=== PATIENT | male | born 1970 | race Caucasian/White ===

== ENCOUNTER 2016-12-18 23:13 | Inpatient (IN) | payer OTHER ==
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
[2016-12-19] MEDS ORDERED: CEFAZOLIN 1 GM in DEXTROSE 5%-WATER - 50 ML IVPB ONE ×2 (01:35→03:14)
[2016-12-19] MEDS ORDERED: HYDROmorphone HCL CARPU-JECT 1 MG/1 ML DISP.SYRIN IVPUSH ONE (01:39)
[2016-12-19] MEDS ORDERED: PIPERACILLIN/TAZOB 3.375 GM 3.375 GM in DEXTROSE 5%-WATER - 50 ML IVPB ONE (01:40)
[2016-12-19] MEDS ORDERED: HYDROmorphone HCL CARPU-JECT 1 MG/1 ML DISP.SYRIN ONE (01:45)
[2016-12-19] MEDS ORDERED: PIPERACILLIN/TAZOB 3.375 GM 50 ML IVPB ONE (01:46)
[2016-12-19] MEDS ORDERED: CEFAZOLIN (PRE-DOCKED) 50 ML IVPB ONE (01:46)
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
[2016-12-19] MEDS ORDERED: morphine CARPU-JECT 4 MG/1 ML DISP.SYRIN IVPUSH PRN (02:24)
[2016-12-19] MEDS ORDERED: ONDANSETRON 4 MG/2 ML VIAL IVPUSH PRN (02:25)
[2016-12-19 02:35] LABS: BASOPHIL 0.6 % (0-2.0); EOSINOPHIL 1.3 % (0-4.5); MEAN CELL VOLUME 81.8 fl (80-96); MEAN PLT VOLUME 8.9 fl (7.5-11.1); NEUTROPHILS 57.9 % (42.8-82.8); PLATELET COUNT 206 K/MM3 (134-434); RDW 13.7 % (11.9-15.9); WHITE BLOOD COUNT 7.6 K/mm3 (4.0-10.0)
[2016-12-19 02:43] LABS: INR 1.04 (0.82-1.09); PROTHROMBIN TIME (PATIENT) 11.4 SEC (9.98-11.88)
[2016-12-19 02:52] LABS: ALK PHOS 87 U/L (45-117); ANION GAP 10 (8-16); BILIRUBIN,TOTAL 0.3 mg/dL (0.2-1.0); CALCIUM 9.2 mg/dL (8.5-10.1); CO2 29 mmol/L (21-32); CREATININE 1.2 mg/dL (0.7-1.3); GLUCOSE,RANDOM 94 mg/dL (74-106); SGOT/AST 22 U/L (15-37); SGPT/ALT 23 U/L (12-78); TOT PROT 8.1 g/dl (6.4-8.2)
[2016-12-19 04:25] VITALS: BMI 28.4
[2016-12-19] MEDS ORDERED: LISINOPRIL 10 MG TABLET (FP) PO SCH (10:00)
[2016-12-19] MEDS ORDERED: amLODIPine BESYLATE 2.5 MG TABLET (FP) PO SCH (10:00)
[2016-12-19] MEDS: CLINDAMYCIN 900 MG PREMIX IVPB 50 ML IVPB SCH ×2 (10:50→17:51)
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
[2016-12-19] MEDS ORDERED: SODIUM CHLORIDE 1,000 ML IV SCH (14:00)
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
[2016-12-19 17:29] VITALS: BP 111/63; PULSE 56; TEMP 98.1
--- NOTE | 2016-12-19 17:33 | EKG ---
Test Reason : Blood Pressure : / mmHG Vent. Rate : 061 BPM Atrial Rate : 061 BPM P-R Int : 170 ms QRS Dur : 084 ms QT Int : 400 ms P-R-T Axes : 018 017 015 degrees QTc Int : 402 ms SINUS RHYTHM WITH PREMATURE SUPRAVENTRICULAR COMPLEXES OTHERWISE NORMAL ECG WHEN COMPARED WITH ECG OF 26-NOV-2016 22:25, PREMATURE SUPRAVENTRICULAR COMPLEXES ARE NOW PRESENT Confirmed by CHANO WILSON MD ([id number]) on 12/19/2016 5:32:57 PM Referred By: Confirmed By:CHANO WILSON MD
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
== END 2016-12-19 21:37 | disposition left against medical advice (07) | DRG 603 ==
LOC: JER 23:13 → JERBED 12-19 01:42 → UNDOADMIN 12-19 02:07 → J7W 12-19 03:49
PROVIDERS: ADMIT Internal Medicine; ATTEND Internal Medicine
DX: L03.114 Cellulitis of left upper limb (principal); S60.552D Superficial foreign body of left hand, subsequent encounter; V00-Y99 External causes of morbidity; I10 Essential (primary) hypertension; Z87.891 Personal history of nicotine dependence
CPT/HCPCS: 36415; 73130-TC-LT; 80053; 85025; 85610; 86850; 86900; 86901; 87040; 90471; 90715; 93005; 93010; 99282-25; 99283-25

== ENCOUNTER 2018-01-09 17:28 | Emergency (ER) | payer OTHER ==
[2018-01-09 17:42] VITALS: BP 118/72; PULSE 111; TEMP 98.8; BMI 28.3
--- NOTE | 2018-01-09 17:42 | PDOC ---
Rapid Medical Evaluation Medical Evaluation: Allergies Allergy/AdvReac Type Severity Reaction Status Date / Time No Known Allergies Allergy Verified 12/16/16 21:20 01/09/18 17:37 I have performed a brief in-person evaluation of this patient. The patient presents with a chief complaint of: headache x 3 days, body aches, "can't swallow", +cough/sneezing/runny nose subjective fever, denies vomiting/ diarrhea, took tylenol at 5 am, other OTC meds Pertinent physical exam findings: lungs ctab, tachy to 109 I have ordered the following: nothing The patient will proceed to the ED for further evaluation. Discharge Disposition - Diagnosis Cough - Referrals - Patient Instructions - Post Discharge Activity
--- NOTE | 2018-01-09 18:36 | PDOC ---
History of Present Illness - General Chief Complaint: Cold Symptoms Stated Complaint: COLD SYMPTOMS Time Seen by Provider: 01/09/18 18:11 History Source: Patient Exam Limitations: No Limitations - History of Present Illness Initial Comments: 01/09/18 18:30 Patient is a 47-year-old male with history of hypertension presents with 2 day history of productive cough, tactile fever, sore throat and headache. Thick duckworth secretions noted. Denies CP or SOB. Past Medical History: [Denies]. Allergies: No known allergies Medications: See medication list. Family History: Non-contributory Social History: Denies smoking, alcohol use, or IVDU Review of Systems GENERAL/CONSTITUTIONAL: [Tactile fever. No weakness. No weight change.] HEAD, EYES, EARS, NOSE AND THROAT: [No change in vision. No ear pain or discharge. Sore throat. ] CARDIOVASCULAR: [No chest pain or shortness of breath.] RESPIRATORY: [Productive cough, no wheezing, or hemoptysis.] GASTROINTESTINAL: [No nausea, vomiting, diarrhea or constipation. No rectal bleeding.] GENITOURINARY: [No dysuria, frequency, or change in urination.] MUSCULOSKELETAL: [No joint or muscle swelling or pain. No neck or back pain.] SKIN AND BREASTS: [No rash or easy bruising.] NEUROLOGIC: [Frontal headache, no vertigo, loss of consciousness, or loss of sensation.] PSYCHIATRIC: [No depression or anxiety.] ENDOCRINE: [No increased thirst. No abnormal weight change.] HEMATOLOGIC/LYMPHATIC: [No anemia, easy bleeding, or history of blood clots.] ALLERGIC/IMMUNOLOGIC: [No hives or skin allergy. No latex allergy.] Physical Exam: GENERAL: [The patient is awake, alert, and fully oriented, in no acute distress. ] EYES: [Pupils equal, round and reactive to light, extraocular movements intact, sclera anicteric, conjunctiva clear.] ENT: [Ears normal, nares patent, oropharynx clear without exudates. Moist mucous membranes. No uvula deviation. Frontal sinus pressure and pain.] NECK: [Normal range of motion, supple without lymphadenopathy, JVD, or masses.] LUNGS: [Breath sounds equal, clear to auscultation bilaterally. No wheezes, and no crackles.] HEART: [Regular rate and rhythm, normal S1 and S2 without murmur, rub or gallop. ] ABDOMEN: [Soft, nontender, normoactive bowel sounds. No guarding, no rebound. No masses. No bruising or abrasions] MUSCULOSKELETAL: [Normal range of motion, no edema. No clubbing or cyanosis. No cords, erythema, or tenderness. No CVA Tenderness with fist.] NEUROLOGICAL: [Cranial nerves II through XII grossly intact. Normal speech, normal gait.] SKIN: [Warm, Dry, normal turgor, no rashes or lesions noted.] Past History - Past Medical History Allergies/Adverse Reactions: Allergies Allergy/AdvReac Type Severity Reaction Status Date / Time No Known Allergies Allergy Verified 01/09/18 17:38 Home Medications: Ambulatory Orders AmLODIPine 2.5/BENAZEPRIL 10 [Lotrel (Nf)] 1 cap PO DAILY 04/09/12 Azithromycin [Zithromax 250mg Tablets -] 250 mg PO UTDICT #6 tab 01/09/18 COPD: No DVT: No HTN: Yes - Immunization History Td Vaccination: Yes (12/16/16) Immunization Up to Date: Yes - Suicide/Smoking/Psychosocial Hx Smoking Status: No Smoking History: Former smoker Have you smoked in the past 12 months: No Number of Cigarettes Smoked Daily: 0 If you are a former smoker, when did you quit?: 20yrs Cigars Per Day: 0 Information on smoking cessation initiated: No Hx Alcohol Use: No Drug/Substance Use Hx: No Substance Use Type: None Hx Substance Use Treatment: No *Physical Exam - Vital Signs Last Vital Signs Temp Pulse Resp BP Pulse Ox 98.8 F 111 H 18 118/72 98 01/09/18 17:39 01/09/18 17:39 01/09/18 17:39 01/09/18 17:39 01/09/18 17:39 Medical Decision Making - Medical Decision Making 01/09/18 18:36 A/P: Patient with frontal sinus pressure pain, cough, headache, sore throat, nares are intact with no erythema or edema. Fever. Rapid strep and rapid influenza sent. *DC/Admit/Observation/Transfer Diagnosis at time of Disposition: URI (upper respiratory infection) Qualifiers: URI type: unspecified URI Qualified Code(s): J06.9 - Acute upper respiratory infection, unspecified - Discharge Dispostion Disposition: HOME Condition at time of disposition: Stable Admit: No - Prescriptions Prescriptions: Azithromycin [Zithromax 250mg Tablets -] 250 mg PO UTDICT #6 tab - Referrals - Patient Instructions Additional Instructions: Keep head of bed elevated 45 when sleeping Cool air humidifier while sleeping will reduce cough Motrin for fever greater than 101 Followup in the primary care doctor's office in 2 days for evaluation. If any respiratory distress, increased cough, inability to drink, increased wheezing please return immediately to emergency department. - Post Discharge Activity Forms/Work/School Notes: Back to Work
== END 2018-01-09 19:32 | disposition home or self-care (01) ==
LOC: JERFT 17:28
DX: J06.9 Acute upper respiratory infection, unspecified (principal); I10 Essential (primary) hypertension; Z87.891 Personal history of nicotine dependence
CPT/HCPCS: 87070; 87077; 87430; 87804; 99281-25

== ENCOUNTER 2019-07-08 18:56 | Emergency (ER) | payer OTHER ==
[2019-07-08] MEDS ORDERED: KETOROLAC TROMETHAMINE 60 MG/2 ML VIAL IM ONE (19:04)
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
[2019-07-08 19:12] VITALS: BP 129/91; PULSE 86; TEMP 97.8; BMI 65.1
[2019-07-08] MEDS ORDERED: ACETAMINOPHEN 500 MG TABLET (FP) PO ONE (19:35)
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
== END 2019-07-08 20:17 | disposition home or self-care (01) ==
LOC: JERFT 18:56
DX: S06.0X0A Concussion without loss of consciousness, initial encounter (principal); M54.5 Low back pain; V49.49XA Driver injured in collision with other motor vehicles in traffic accident, initial encounter; Y92.414 Local residential or business street as the place of occurrence of the external cause; Y93.89 Activity, other specified; Y99.8 Other external cause status; I10 Essential (primary) hypertension
CPT/HCPCS: 70450-TC; 99281-25

== ENCOUNTER 2022-01-18 18:46 | Observation (INO) | payer OTHER ==
[2022-01-18 20:15] LABS: BASO % 0.4 % (0-2.0); EOS % 0.8 % (0-4.5); HEMATOCRIT 45.5 % (35.4-49); LYMPH % 33.5 % (8-40); MCH 27.2 pg (25.7-33.7); MCHC 33.1 g/dl (32.0-35.9); MEAN CELL VOLUME 82.4 fl (80-96); MONO % 7.7 % (3.8-10.2); NEUT % 57.6 % (42.8-82.8); PLATELET COUNT 196 10^3/uL (134-434); RBC 5.52 M/mm3 (4.00-5.60); RDW 14.3 % (11.9-15.9); WHITE BLOOD COUNT 6.5 K/mm3 (4.0-10.0)
[2022-01-18] MEDS ORDERED: ALPRAZolam 0.25 MG TABLET PO ONE (20:16)
[2022-01-18 20:19] LABS: URINE APPEARANCE CLEAR; URINE BILIRUBIN NEGATIVE (NEGATIVE); URINE COLOR YELLOW; URINE GLUCOSE (UA) NEGATIVE (NEGATIVE); URINE KETONE TRACE (NEGATIVE); URINE LEUK ESTERASE NEGATIVE (NEGATIVE); URINE NITRITE NEGATIVE (NEGATIVE); URINE PROTEIN NEGATIVE (NEGATIVE); URINE UROBILINOGEN 0.2 mg/dL (0.2-1.0)
[2022-01-18 20:21] LABS: INR 0.97 (0.83-1.09); PROTHROMBIN TIME (PATIENT) 11.2 SEC (9.7-13.0)
[2022-01-18 20:23] LABS: ACTIVATED PTT 32.2 SECONDS (25.2-36.5)
[2022-01-18 20:38] LABS: ALBUMIN 4.1 g/dl (3.4-5.0); BLOOD UREA NITROGEN 19.7 mg/dL (7-18); CALCIUM 9.3 mg/dL (8.5-10.1)
[2022-01-18 20:41] LABS: CREATININE 1.1 mg/dL (0.55-1.3)
[2022-01-18 20:43] LABS: BILIRUBIN,TOTAL 0.4 mg/dL (0.2-1); TOT PROT 7.8 g/dl (6.4-8.2)
[2022-01-18] MEDS ORDERED: ASPIRIN 81 MG CHEWABLE TABLETS PO ONE (21:21)
[2022-01-18] MEDS ORDERED: ASPIRIN 325 MG TABLET ONE (21:42)
[2022-01-19 01:19] LABS: PHENCYCLIDINE,URINE NEGATIVE (NEGATIVE)
[2022-01-19 01:20] LABS: COCAINE, UR NEGATIVE (NEGATIVE); OPIATES, URI NEGATIVE (NEGATIVE)
[2022-01-19 01:22] LABS: METHADONE, UR NEGATIVE (NEGATIVE); URINE AMPHETAMINES NEGATIVE (NEGATIVE); URINE BARBITURATES NEGATIVE (NEGATIVE); URINE BENZODIAZEPINES NEGATIVE (NEGATIVE)
[2022-01-19 03:58] VITALS: BMI 27.6
[2022-01-19 07:54] LABS: BASO % 0.2 % (0-2.0); EOS % 0.4 % (0-4.5); HEMATOCRIT 42.7 % (35.4-49); HEMOGLOBIN 13.8 GM/dL (11.7-16.9); LYMPH % 27.9 % (8-40); MCH 26.8 pg (25.7-33.7); MCHC 32.4 g/dl (32.0-35.9); MEAN CELL VOLUME 82.8 fl (80-96); MEAN PLT VOLUME 9.1 fl (7.5-11.1); MONO % 8.7 % (3.8-10.2); NEUT % 62.8 % (42.8-82.8); PLATELET COUNT 181 10^3/uL (134-434); RBC 5.15 M/mm3 (4.00-5.60); RDW 14.1 % (11.9-15.9); WHITE BLOOD COUNT 6.2 K/mm3 (4.0-10.0)
[2022-01-19 08:18] LABS: CALCIUM 8.7 mg/dL (8.5-10.1)
[2022-01-19 08:19] LABS: ALBUMIN 3.5 g/dl (3.4-5.0); BLOOD UREA NITROGEN 15.4 mg/dL (7-18); MAGNESIUM 2.2 mg/dL (1.8-2.4)
[2022-01-19 08:22] LABS: CREATININE 0.9 mg/dL (0.55-1.3); PHOSPHOROUS 3.9 mg/dL (2.5-4.9)
[2022-01-19 08:23] LABS: BILIRUBIN,TOTAL 0.6 mg/dL (0.2-1)
[2022-01-19 08:24] LABS: TOT PROT 6.8 g/dl (6.4-8.2)
[2022-01-19] MEDS ORDERED: LISINOPRIL 10 MG TABLET PO SCH (10:00)
[2022-01-19] MEDS ORDERED: ASPIRIN 81 MG CHEWABLE TABLETS PO SCH (10:00)
[2022-01-19] MEDS ORDERED: ENOXAPARIN NA (PORCINE) 40 MG/0.4 ML DISP.SYRIN SQ SCH (10:00)
[2022-01-19] MEDS ORDERED: SODIUM CHLORIDE 1,000 ML IV SCH (11:30)
[2022-01-19 12:43] VITALS: BP 142/76; PULSE 59; TEMP 97.6
== END 2022-01-19 13:44 | disposition left against medical advice (07) ==
LOC: JER 18:46 → INTOOBSV 20:04 → UNDOADMOB 20:04 → JERBED 20:04 → J4W 01-19 03:17 → JERBED 01-19 13:06 → J4W 01-19 13:06
PROVIDERS: ADMIT Hospitalist; ATTEND Internal Medicine
PROC: 3E023GC Introduction of Other Therapeutic Substance into Muscle, Percutaneous Approach (ICD-10-PCS; principal; 2022-01-19)
DX: I10 Essential (primary) hypertension (principal); D35.2 Benign neoplasm of pituitary gland; H53.8 Other visual disturbances; Z91.14 Patient's other noncompliance with medication regimen
CPT/HCPCS: 36415; 70450-TC; 70552-TC; 80053; 80061; 80307; 81003; 82550; 83036; 83735; 84100; 84146; 84443; 85025; 85610; 85730; 86850; 86900; 86901; 93005; 93010; 99285-25; A9579; C9803-CS; G0378; U0003; U0005

== ENCOUNTER 2023-05-03 15:02 | Emergency (ER) | payer OTHER ==
[2023-05-03 15:11] VITALS: BP 120/76; PULSE 68; RESP 18; TEMP 98.2; BMI 28.3
[2023-05-03] MEDS ORDERED: ACETAMINOPHEN 500 MG TABLET (FP) PO ONE (16:12)
[2023-05-03 16:28] LABS: BASO % 0.4 % (0-2.0); EOS % 0.8 % (0-4.5); HEMATOCRIT 45.6 % (35.4-49); LYMPH % 17.5 % (8-40); MCH 26.9 pg (25.7-33.7); MEAN CELL VOLUME 81.7 fl (80-96); MEAN PLT VOLUME 8.6 fl (7.5-11.1); NEUT % 73.3 % (42.8-82.8); PLATELET COUNT 206 10^3/uL (134-434); RBC 5.58 M/mm3 (4.00-5.60); RDW 14.5 % (11.9-15.9); WHITE BLOOD COUNT 7.9 K/mm3 (4.0-10.0)
[2023-05-03] MEDS ORDERED: ACETAMINOPHEN 325 MG TABLET (FP) ONE (16:37)
[2023-05-03 17:01] LABS: POTASSIUM 4.6 mmol/L (3.5-5.1)
[2023-05-03 17:04] LABS: ALBUMIN 3.9 g/dl (3.4-5.0); BLOOD UREA NITROGEN 18.9 mg/dL (7-18)
[2023-05-03 17:07] LABS: CREATININE 1.2 mg/dL (0.55-1.3); PHOSPHOROUS 3.5 mg/dL (2.5-4.9)
[2023-05-03 17:08] LABS: BILIRUBIN,TOTAL 0.4 mg/dL (0.2-1); TOT PROT 7.6 g/dl (6.4-8.2)
== END 2023-05-03 17:30 | disposition left against medical advice (07) ==
LOC: JER 15:02
DX: S62.634A Displaced fracture of distal phalanx of right ring finger, initial encounter for closed fracture (principal); R07.9 Chest pain, unspecified; Z53.21 Procedure and treatment not carried out due to patient leaving prior to being seen by health care provider; M79.644 Pain in right finger(s); W20.8XXA Other cause of strike by thrown, projected or falling object, initial encounter
CPT/HCPCS: 36415; 71046-TC-FY; 73130-TC-RT-FY; 73140-TC-RT-FY; 80053; 83735; 84100; 84484; 85025; 93005; 93010; 99285-25

== ENCOUNTER 2024-06-10 11:32 | Emergency (ER) | payer OTHER ==
[2024-06-10 11:44] VITALS: BP 129/81; PULSE 68; RESP 16; TEMP 97.9; BMI 26.4
[2024-06-10 14:11] LABS: HIV INTERPRETATION NEGATIVE (NEGATIVE)
== END 2024-06-10 13:51 | disposition home or self-care (01) ==
LOC: JERFT 11:32
DX: N48.1 Balanitis (principal); B35.6 Tinea cruris; R21 Rash and other nonspecific skin eruption
CPT/HCPCS: 36415; 86593; 86780; 86803; 87389; 87491; 87591; 87661; 99283-25